=== PATIENT | female | born 1990 | race American Indian/Alaskan Native ===

== ENCOUNTER 2018-02-03 09:43 | Outpatient (CLI) | payer OTHER ==
--- NOTE | 2018-02-03 15:49 | Magnetic Resonance Report ---
FINAL REPORT EXAM: MR LUMBAR SPINE WO CON HISTORY: PAIN COMPARISON: None. TECHNIQUE: Multiplanar multisequential imaging of the lumbar spine was performed without administration of IV contrast. FINDINGS: There is normal alignment. The vertebral body heights are maintained. There is normal signal of the bone marrow. The conus medullaris is at the level of the L1 vertebral body. There is normal signal and contour of the lower spinal cord and the filum terminale. T12-L1: Normal disc height and signal. No central or foraminal stenosis. L1-L2: Normal disc height and signal. No central or foraminal stenosis. L2-L3: Normal disc height and signal. No central or foraminal stenosis L3-L4: Normal disc height and signal. No central or foraminal stenosis. L4-L5: Mild broad-based disc bulge. Normal disc signal. No central or foraminal stenosis. L5-S1: Normal disc height and signal. No central or foraminal stenosis. The paravertebral soft tissues are normal. There is an ill-defined 4.8 x 3.7 centimeter left adnexal lesion. IMPRESSION: Mild broad-based disc bulge at L4-L5. No central or foraminal stenosis. Otherwise normal MRI of the lumbar spine. Ill-defined 4.8 x 3.7 centimeter left adnexal lesion. Consider further evaluation with pelvic ultrasound.
== END 2018-02-03 09:44 | disposition home or self-care (01) ==
LOC: MRI 09:43
PROVIDERS: ATTEND Family Medicine
DX: M51.36 Other intervertebral disc degeneration, lumbar region (principal); Z88.6 Allergy status to analgesic agent
CPT/HCPCS: 72148